=== PATIENT | female | born 1960 | race Caucasian/White ===

== ENCOUNTER 2016-12-01 08:23 | Emergency (ER) | payer OTHER ==
[2016-12-01 08:48] VITALS: BP 128/88; PULSE 79; RESP 14; TEMP 97.8; O2SAT 95
--- NOTE | 2016-12-01 09:32 | UCPHY ---
H & P Time Seen by Provider: 12/01/16 09:18 Patient Type: Established HPI/ROS: This patient presents with a chief complaint of low back pain which started 1 week ago initially involved her entire lower back but now has localized to her left buttock. The pain does not radiate into the extremity but she has noticed some strange sensations in the lateral aspect of the left thigh. She denies actual numbness or even tingling. She has had some mild constipation but has been defecating daily. She denies any bladder dysfunction. She denies abdominal pain, nausea or vomiting. If she says that she has been having back problems for 30 years and that she has had back surgery in the past. She was diagnosed with sciatic of which responded to conservative treatment. Smoking Status: Former smoker Physical Exam: This is a well-developed well-nourished female who is in mild distress when she is moving. There is some tenderness over the sciatic notch but not the sciatic nerve. There is some diffuse mild tenderness over the musculature in the lower lumbar area. Straight leg raising is negative. Deep tendon reflexes are symmetric. Motor function is normal bilaterally. Sensation is normal except in the lateral left thigh where there might be some diminished sensation. The patient is alert, lucid and entirely appropriate. Constitutional: Initial Vital Signs Temperature (C) 36.6 C 12/01/16 08:45 Heart Rate 79 12/01/16 08:45 Respiratory Rate 14 12/01/16 08:45 Blood Pressure 128/88 H 12/01/16 08:45 O2 Sat (%) 95 12/01/16 08:45 O2 Delivery Mode Room Air Allergies/Adverse Reactions: Penicillins Allergy (Verified 12/01/16 08:46) Home Medications: Medication Instructions Recorded CYCLOBENZAPRINE HCL [Flexeril] 5 mg PO TIDPRN PRN #15 tab 12/01/16 Hydrocodone/APAP 5/325 [[place] 12/01/16 5/325 (*)] Hydrocodone/APAP 5/325 [[place] 1 each PO Q4-6PRN PRN #10 tab 12/01/16 5/325 (*)] Medical Decision Making Differential Diagnosis: This patient may in fact have a lumbar radiculopathy however I do not feel urgent MRI is indicated at this time since there is no motor dysfunction. I do not feel that plain films would be beneficial either since there is no history of trauma. Departure - Departure Disposition: Home, Routine, Self-Care Clinical Impression: Low back pain Qualifiers: Chronicity: acute Back pain laterality: left Sciatica presence: unspecified whether sciatica present Qualified Code(s): M54.5 - Low back pain Condition: Good Instructions: Acute Low Back Pain (ED) Additional Instructions: If your symptoms have not improved or resolved in 7-10 days you should be re- evaluated. Cause for concern would be difficulty defecating or urinating, pain radiating down your leg or weakness in your leg. Apply heat to the area several times daily. Avoid painful activities Adult Pain & Fever Control: We recommend Acetaminophen (Tylenol) and Ibuprofen (Motrin, Advil) for pain and fever control. When fever is high or pain severe, both drugs can be used at the same time, but at different intervals. Please note the time differences. Your dose is: Acetaminophen [650]mg every 4 to 6 hours ibuprofen [600]mg every [6] hours with food OR naproxen Sodium (Aleve) [440]mg every 12 hours. Note: do not take Acetaminophen with Hydrocodone (Vicodin, Lortab) or Oxycodone (Percocet). These medications also contain Acetaminophen. No more than 3000 mg of Acetaminophen should be taken in 24 hours (for an adult) . The maximal dose of ibuprofen that it is safe in a 24-hour period is 2400 mg. You may take 400 mg every 4 hours, 600 mg every 6 hours or 800 mg every 8 hours safely. Referrals: Lien Prieto MD [Primary Care Provider] - As per Instructions Prescriptions: CYCLOBENZAPRINE HCL [Flexeril] 5 mg PO TIDPRN PRN #15 tab PRN Reason: back pain Hydrocodone/APAP 5/325 [[place] 5/325 (*)] 1 each PO Q4-6PRN PRN #10 tab PRN Reason: pain - PQRS PQRS Measurement: Not applicable
== END 2016-12-01 09:42 | disposition home or self-care (01) ==
LOC: CED 08:23
DX: M54.5 Low back pain (principal); Z87.891 Personal history of nicotine dependence
CPT/HCPCS: G0463-PO